=== PATIENT | female | born 1970 | race Caucasian/White ===

== ENCOUNTER 2020-07-05 12:14 | Outpatient (REF) | payer OTHER, SELFPAY | END 2020-07-05 12:15 | disposition home or self-care (01) | LOC: HO.HMGCLDS 12:14 | PROVIDERS: Visit Provider Internal Medicine | DX: Z20.828 Contact with and (suspected) exposure to other viral communicable diseases (principal) | CPT/HCPCS: C9803; U0003 ==

== ENCOUNTER 2021-02-02 08:25 | Emergency (ER) | payer OTHER, SELFPAY ==
--- NOTE | ~2021-02-02 | XR_ITS ---
EXAMINATION: XR WRIST, RIGHT CLINICAL INFORMATION: Pain COMPARISON: None TECHNIQUE: Four views of the right wrist. FINDINGS: Bone alignment is normal. No fracture or dislocation is seen. There is mild arthritis at the first LONGTERM joint with joint space narrowing and osteophyte formation. Joint spaces are otherwise normal. Soft tissues are normal. XR/XR wrist RT min 3V IMPRESSION: Mild arthritis at the first LONGTERM joint.
[2021-02-02 09:06] VITALS: BP 151/85; PULSE 74; RESP 16; TEMP 36.8; O2SAT 98; BMI 29.8
[2021-02-02] MEDS: NaPROXEN 500 MG TABLET PO (09:43)
--- NOTE | 2021-02-02 09:46 | ED_ITS ---
HPI - Extremity Problem General Chief complaint: Extremity Injury, Upper Stated complaint: wrist fracture Time Seen by Provider: 02/02/21 08:29 Source: patient Mode of arrival: ambulatory History of Present Illness HPI Narrative: 50-year-old female with a past medical history of bowel obstruction s/p appendectomy and cholecystectomy, presenting hand/ wrist pain s/p twisting injury last night while hanging items in closet. Denies direct injury/trauma or fall. Reports associated numbness/tingling, and pain with ROM. Denies weakness, fever, chills MD Complaint: extremity pain and joint paint Related Data Previous Rx's Medication Instructions Recorded acetaminophen [Tylenol Extra 500 mg PO Q6H PRN #20 tab 02/02/21 Strength] cyclobenzaprine 5 mg PO Q8H PRN 5 Days #14 tab 02/02/21 naproxen 500 mg PO BID PRN 10 Days #20 tab 02/02/21 Allergies Allergy/AdvReac Type Severity Reaction Status Date / Time Latex, Natural Rubber Allergy Hives Verified 02/02/21 09:05 shellfish derived Allergy Anaphylaxis Verified 02/02/21 09:05 Review of Systems Review of Systems: Constitutional: No Fever, No Chills Musculoskeletal: + joint pain, No Myalgias, No Joint Swelling Skin: No Skin Lesions, No rash Neuro: No Weakness, + Numbness, No Paresthesias Yes all other systems are reviewed and are negative Neurologic: Denies Sensory deficit (Neuro) [facility] Past Medical History Attestation statement: The following information was validated with the patient. Medical History (Updated 02/02/21 @ 09:47 by DRE Kwon) Bowel obstruction Surgical History (Updated 02/02/21 @ 09:12 by Soraida Dias) H/O colostomy H/O prior ablation treatment History of appendectomy History of colostomy reversal S/P cholecystectomy Social History Social History Advance Directives: Yes Advance Directives Information Provided: Yes Advance Directives on File: No Patient : No Physical Exam Vital Signs: Vital Signs: Last Vital Signs Temp 98.3 F 02/02/21 09:06 Pulse 74 02/02/21 09:06 Resp 16 02/02/21 09:06 BP 151/85 H 02/02/21 09:06 Pulse Ox 98 02/02/21 09:06 Body Mass Index 29.8 Const: General: cooperative, healthy appearing and no acute distress Orientation/consciousness: patient oriented x3 Limitations: no limitations HENMT: Head: Yes normal to inspection Ears: hearing grossly normal bilaterally General nose exam: Normal external nose present Face and sinus: Yes normal facial exam Eyes: General: appearance normal, both eyes and all related structures EOM: EOMs intact bilaterally Neck: Neck: Yes normal visual inspection and Yes no meningeal signs Resp: Effort & Inspection: normal respiratory effort Cardio: Rate: regular rate Peripheral pulses: radial pulses present Skin: Rashes: no rashes Wounds: no wounds Neuro: General: patient oriented x3, tone normal and no meningeal signs Gait exam (Neuro): Normal gait present Sensory Exam: No Sensory deficit (Neuro) Extrem: Other: Right wrist with tenderness to palpation at ulnar aspect. No appreciable deformity or swelling. Neurovascularly intact. Sensation intact to light touch. Decreased ROM secondary to pain. No snuffbox tenderness Course Course Course Narrative: XR wrist RT min 3V IMPRESSION: Mild arthritis at the first ASSISTED joint. >> patient placed in volar splint for comfort. Is to follow up with PCP MDM - Extremity (Nontraumatic) MDM Narrative Medical decision making narrative: 50-year-old female with a past medical history of bowel obstruction s/p appendectomy and cholecystectomy, presenting hand/ wrist pain s/p twisting injury last night while hanging items in closet. On exam vital signs stable, NAD, nontoxic, physical exam as above. Concern for nerve impingement vs tendon or ligamental injury vs strain. Lower concern for fracture/dislocation X-rays Discharge Plan Discharge Clinical Impression: Acute wrist pain Qualifiers: Laterality: right Qualified Code(s): M25.531 - Pain in right wrist Patient Disposition: Home, Self-Care Instructions: Wrist Injury (ED) Additional Instructions: Your wrist x-ray showed mild arthritis of your thumb Wear wrist splint at home as needed Apply heat Naproxen as anti-inflammatory medication, take with food Addition take Tylenol And Flexeril as a muscle relaxer, take at night as it makes you drowsy, do not drive, drink alcohol, or operate machinery while taking it In addition follow-up with her PCP If her symptoms persist or worsen, become unbearable please return to the ED Prescriptions: New acetaminophen [Tylenol Extra Strength] 500 mg tablet 500 mg PO Q6H PRN (Reason: pain or fever) Qty: 20 RF: 0 naproxen 500 mg tablet 500 mg PO BID PRN (Reason: pain) 10 Days Qty: 20 RF: 0 cyclobenzaprine 5 mg tablet 5 mg PO Q8H PRN (Reason: pain (scale score 7-10)) 5 Days Qty: 14 RF: 0 Referrals: Coy Ghosh MD [Primary Care Provider] - 2 days Interventions: ED Discharge Assessment Last Done: 02/02/21 10:04 Discharge Date/Time: 02/02/21 10:05
== END 2021-02-02 10:05 | disposition home or self-care (01) ==
PROVIDERS: Emergency Provider Emergency Medicine; PCP Internal Medicine
DX: M25.531 Pain in right wrist (principal)
CPT/HCPCS: 29125; 73110; 99283; 99284